=== PATIENT | female | born 1995 | race Hispanic/Latino ===

== ENCOUNTER 2018-10-19 19:47 | Emergency (ER) | payer MEDICARE, OTHER ==
[~2018-10-19] VITALS: Ht 157.5 cm; Wt 95.3 kg
--- OUTSIDE RECORDS SUMMARY | 2018-10-19 19:50 | XMS REPORT ---
Author Author [facility] Address Unknown Phone Unavailable Care Team Providers Care Tree Worker Name Role Phone Unavailable Unavailable Payers Payer Name Policy Type Policy Number Effective Date Expiration Date Problems This patient has no known problems. Allergies, Adverse Reactions, Alerts Allergy Name Allergy Type Status Severity Reaction(s) Onset Date Inactive Date Treating Clinician Comments No Known Allergies DA Active U 2018-07-11 00:00:00 No Known Allergies DA Active U 2017-12-02 00:00:00 Medications This patient has no known medications. Results Test Description Test Time Test Comments Text Results Atomic Results Result Comments URINALYSIS COMPLETE 2018-10-18 21:25:00 UA COLOR (test code=COLU) YELLOW YELLOW UA APPEARANCE (test code=APPU) CLEAR CLEAR UA GLUCOSE DIPSTICK (test code=DGLUU) norm mg/dL NEGATIVE UA BILIRUBIN DIPSTICK (test code=BILU) NEGATIVE mg/dL NEGATIVE UA KETONE DIPSTICK (test code=KETU) neg mg/dL NEGATIVE UA SPECIFIC GRAVITY (test code=SGU) 1.015 1.001-1.035 UA BLOOD DIPSTICK (test code=ISAURO) 25 (1+) Tyler/uL NEGATIVE UA PH DIPSTICK (test code=LISA) 6.5 5.0-8.0 UA PROTEIN DIPSTICK (test code=PROU) neg mg/dL Neg-15 UA UROBILINIOGEN DIPSTICK (test code=URO) 1 mg/dL 0.0-0.2 UA NITRITE DIPSTICK (test code=MANI) NEGATIVE NEGATIVE UA LEUKOCYTE ESTERASE DIPSTICK (test code=LEUU) 25 Gianluca/uL (Trace) uL NEGATIVE UA WBC (test code=WBCU) 0-5 per HPF 0-5 UA RBC (test code=RBCU) 3-5 per HPF 0-5 UA EPITHELIAL CELLS (test code=EPIU) Few (2-5/hpf) per HPF Few UA BACTERIA (test code=BACU) FEW per HPF NONE UR HCG [id number] 21:25:00* Test Item Value Reference Range Comments UR HCG QUAL (test code=HCGQLU) NEGATIVE This HCGQL test is NOT applicable for MALE patients.Check with nurse about probable order error.If Tumor Marker Test needed, nurse should order test "HCGTU"(Test #550.59796) URINALYSIS [id number] 21:21:00* Test Item Value Reference Range Comments UA COLOR (test code=COLU) YELLOW YELLOW UA APPEARANCE (test code=APPU) CLEAR CLEAR UA GLUCOSE DIPSTICK (test code=DGLUU) norm mg/dL NEGATIVE UA BILIRUBIN DIPSTICK (test code=BILU) NEGATIVE mg/dL NEGATIVE UA KETONE DIPSTICK (test code=KETU) neg mg/dL NEGATIVE UA SPECIFIC GRAVITY (test code=SGU) 1.015 1.001-1.035 UA BLOOD DIPSTICK (test code=ISAURO) 25 (1+) Tyler/uL NEGATIVE UA PH DIPSTICK (test code=LISA) 6.5 5.0-8.0 UA PROTEIN DIPSTICK (test code=PROU) neg mg/dL Neg-15 UA UROBILINIOGEN DIPSTICK (test code=URO) 1 mg/dL 0.0-0.2 UA NITRITE DIPSTICK (test code=MANI) NEGATIVE NEGATIVE UA LEUKOCYTE ESTERASE DIPSTICK (test code=LEUU) uL NEGATIVE UA WBC (test code=WBCU) per HPF 0-5 UA RBC (test code=RBCU) per HPF 0-5 UA EPITHELIAL CELLS (test code=EPIU) per HPF Few UA BACTERIA (test code=BACU) per HPF NONE URINALYSIS W/O [id number] 21:21:00* Test Item Value Reference Range Comments UA LEUKOCYTE ESTERASE W REFLEX (test code=LEUUR) NEGATIVE UR HCG [id number] 21:21:00* Test Item Value Reference Range Comments UR HCG QUAL (test code=HCGQLU) URINALYSIS [id number] 21:21:00* Test Item Value Reference Range Comments UA COLOR (test code=COLU) YELLOW YELLOW UA APPEARANCE (test code=APPU) CLEAR CLEAR UA GLUCOSE DIPSTICK (test code=DGLUU) norm mg/dL NEGATIVE UA BILIRUBIN DIPSTICK (test code=BILU) NEGATIVE mg/dL NEGATIVE UA KETONE DIPSTICK (test code=KETU) neg mg/dL NEGATIVE UA SPECIFIC GRAVITY (test code=SGU) 1.015 1.001-1.035 UA BLOOD DIPSTICK (test code=ISAURO) 25 (1+) Tyler/uL NEGATIVE UA PH DIPSTICK (test code=LISA) 6.5 5.0-8.0 UA PROTEIN DIPSTICK (test code=PROU) neg mg/dL Neg-15 UA UROBILINIOGEN DIPSTICK (test code=URO) 1 mg/dL 0.0-0.2 UA NITRITE DIPSTICK (test code=MANI) NEGATIVE NEGATIVE UA LEUKOCYTE ESTERASE DIPSTICK (test code=LEUU) uL NEGATIVE UA WBC (test code=WBCU) per HPF 0-5 UA RBC (test code=RBCU) per HPF 0-5 UA EPITHELIAL CELLS (test code=EPIU) per HPF Few UA BACTERIA (test code=BACU) per HPF NONE URINALYSIS W/O [id number] 21:21:00* Test Item Value Reference Range Comments UA LEUKOCYTE ESTERASE W REFLEX (test code=LEUUR) NEGATIVE UR HCG [id number] 21:21:00* Test Item Value Reference Range Comments UR HCG QUAL (test code=HCGQLU) URINALYSIS [id number] 20:57:00* Test Item Value Reference Range Comments UA COLOR (test code=COLU) YELLOW YELLOW UA APPEARANCE (test code=APPU) HAZY CLEAR UA GLUCOSE DIPSTICK (test code=DGLUU) norm mg/dL NEGATIVE UA BILIRUBIN DIPSTICK (test code=BILU) NEGATIVE mg/dL NEGATIVE UA KETONE DIPSTICK (test code=KETU) neg mg/dL NEGATIVE UA SPECIFIC GRAVITY (test code=SGU) 1.015 1.001-1.035 UA BLOOD DIPSTICK (test code=ISAURO) 10 (Trace) Tyler/uL NEGATIVE UA PH DIPSTICK (test code=LISA) 8.0 5.0-8.0 UA PROTEIN DIPSTICK (test code=PROU) neg mg/dL Neg-15 UA UROBILINIOGEN DIPSTICK (test code=URO) norm mg/dL 0.0-0.2 UA NITRITE DIPSTICK (test code=MANI) NEGATIVE NEGATIVE UA LEUKOCYTE ESTERASE DIPSTICK (test code=LEUU) 25 Gianluca/uL (Trace) uL NEGATIVE UA WBC (test code=WBCU) 0-5 per HPF 0-5 IN SOME URINARY TRACT INFECTIONS THERE MAY NOT BE ENOUGHWBCs IN THE URINE TO TRIGGER AN AUTOMATIC (REFLEX) URINECULTURE. A SEPERATE ORDER FOR URINE CULTURE IS RECOMMENDEDIF THERE IS STRONG SUPPORT FOR A URINARY TRACT INFECTIONCLINICALLY. UA RBC (test code=RBCU) 0-2 per HPF 0-5 UA EPITHELIAL CELLS (test code=EPIU) Few (2-5/hpf) per HPF Few UA BACTERIA (test code=BACU) TRACE per HPF NONE UA MUCUS (test code=MUCU) MODERATE per LPF NONE-FEW UA AMORPHOUS SEDIMENT (test code=AMORU) FEW per LPF NONE Urine Source? Clean CatchUR HCG [id number] 20:57:00* Test Item Value Reference Range Comments UR HCG QUAL (test code=HCGQLU) NEGATIVE This HCGQL test is NOT applicable for MALE patients.Check with nurse about probable order error.If Tumor Marker Test needed, nurse should order test "HCGTU"(Test #550.65926) Urine Source? Clean CatchURINALYSIS [id number] 20:54:00* Test Item Value Reference Range Comments UA COLOR (test code=COLU) YELLOW YELLOW UA APPEARANCE (test code=APPU) HAZY CLEAR UA GLUCOSE DIPSTICK (test code=DGLUU) norm mg/dL NEGATIVE UA BILIRUBIN DIPSTICK (test code=BILU) NEGATIVE mg/dL NEGATIVE UA KETONE DIPSTICK (test code=KETU) neg mg/dL NEGATIVE UA SPECIFIC GRAVITY (test code=SGU) 1.015 1.001-1.035 UA BLOOD DIPSTICK (test code=ISAURO) 10 (Trace) Tyler/uL NEGATIVE UA PH DIPSTICK (test code=LISA) 8.0 5.0-8.0 UA PROTEIN DIPSTICK (test code=PROU) neg mg/dL Neg-15 UA UROBILINIOGEN DIPSTICK (test code=URO) norm mg/dL 0.0-0.2 UA NITRITE DIPSTICK (test code=MANI) NEGATIVE NEGATIVE UA LEUKOCYTE ESTERASE DIPSTICK (test code=LEUU) 25 Gianluca/uL (Trace) uL NEGATIVE UA WBC (test code=WBCU) per HPF 0-5 UA RBC (test code=RBCU) per HPF 0-5 UA EPITHELIAL CELLS (test code=EPIU) per HPF Few UA BACTERIA (test code=BACU) per HPF NONE Urine Source? Clean CatchUR HCG [id number] 20:54:00* Test Item Value Reference Range Comments UR HCG QUAL (test code=HCGQLU) NEGATIVE This HCGQL test is NOT applicable for MALE patients.Check with nurse about probable order error.If Tumor Marker Test needed, nurse should order test "HCGTU"(Test #550.88647) Urine Source? Clean CatchURINALYSIS [id number] 20:53:00* Test Item Value Reference Range Comments UA COLOR (test code=COLU) YELLOW YELLOW UA APPEARANCE (test code=APPU) HAZY CLEAR UA GLUCOSE DIPSTICK (test code=DGLUU) norm mg/dL NEGATIVE UA BILIRUBIN DIPSTICK (test code=BILU) NEGATIVE mg/dL NEGATIVE UA KETONE DIPSTICK (test code=KETU) neg mg/dL NEGATIVE UA SPECIFIC GRAVITY (test code=SGU) 1.015 1.001-1.035 UA BLOOD DIPSTICK (test code=ISAURO) 10 (Trace) Tyler/uL NEGATIVE UA PH DIPSTICK (test code=LISA) 8.0 5.0-8.0 UA PROTEIN DIPSTICK (test code=PROU) neg mg/dL Neg-15 UA UROBILINIOGEN DIPSTICK (test code=URO) norm mg/dL 0.0-0.2 UA NITRITE DIPSTICK (test code=MANI) NEGATIVE NEGATIVE UA LEUKOCYTE ESTERASE DIPSTICK (test code=LEUU) 25 Gianluca/uL (Trace) uL NEGATIVE UA WBC (test code=WBCU) per HPF 0-5 UA RBC (test code=RBCU) per HPF 0-5 UA EPITHELIAL CELLS (test code=EPIU) per HPF Few UA BACTERIA (test code=BACU) per HPF NONE Urine Source? Clean CatchUR HCG [id number] 20:53:00* Test Item Value Reference Range Comments UR HCG QUAL (test code=HCGQLU) Urine Source? Clean Catch- MRI [id number] 08:46:00 FAX: Chino Silva MD [phone] [place]: [address] St: ADM Name: JILLIAN PACE [facility] : [birth year] Age/S: 23/F [address] Unit #: [id number] Loc: [place] [place] [address] Phys: Tai Silva MD Acct: [id number] Dis Date: Status: ADM IN PHONE #: [phone] Exam Date: 07/02/2018 0833 FAX #: [phone] Reason: pancreatitis EXAMS: CPT CODE: [id number] MRI MRCP [id number] HISTORY: Pancreatitis. COMPARISON: Ultrasound and CT scan from previous day. MRCP: 3-D images. CBD is normal at 3.2 mm without filling defects with smoo th taper into the ampulla. No evidence of CBD stones. Common hepatic, ri ght and left hepatic ducts are normal. Pancreatic duct is unremarkable as well. Gallbladder demonstrating gallstones. No ascites. IMPRESSION: Normal CBD at 3.2 mm without filling defects. No CBD stones. Smooth taper into the ampulla. Gallstones. El ectronically Signed by Wnedy Scott on 07/02/2018 at 0846 Reported and signed by: Howard Scott M.D. CC: Chino Streeter MD Technologist: SURESH MalhotraRT - MRI [place] Date/Time/By: 07/02/2018 (084 6) : By: [email or web address] Orig Print D/T: S: 07/02/2018 (0850) PAGE 1 Signed Report BASIC METABOLIC [id number] 05:31:00* Test Item Value Reference Range Comments SODIUM (test code=NA) 139 mmol/L 136-145 POTASSIUM (test code=K) 3.8 mmol/L 3.5-5.1 CHLORIDE (test code=CL) 107.0 mmol/L 98-107 CARBON DIOXIDE (test code=CO2) 26.0 mmol/L 21-32 ANION GAP (test code=GAP) 9.8 10-20 GLUCOSE (test code=GLU) 72 mg/dL 74-106 BLOOD UREA NITROGEN (test code=BUN) 5 mg/dL 7-18 GLOMERULAR FILTRATION RATE (test code=GFR) > 60 mL/min >=60 Estimated GFR by using Modified MDRD formula.Chronic kidney disease is defined as either kidney damageor GFR <60 mL/min/1.73 m2 for >3 months. CREATININE (test code=CREAT) 0.30 mg/dL 0.55-1.02 Note change in reference range due to change in reagent. BUN/CREATININE RATIO (test code=BUN/CREA) 14.9 10-20 CALCIUM (test code=CA) 7.7 mg/dL 8.5-10.1 [id number] 05:31:00* Test Item Value Reference Range Comments LIPASE (test code=LIP) 97 U/L 73.0-393.0 BASIC METABOLIC [id number] 05:27:00* Test Item Value Reference Range Comments SODIUM (test code=NA) 139 mmol/L 136-145 POTASSIUM (test code=K) 3.8 mmol/L 3.5-5.1 CHLORIDE (test code=CL) 107.0 mmol/L 98-107 CARBON DIOXIDE (test code=CO2) mmol/L 21-32 ANION GAP (test code=GAP) 10-20 GLUCOSE (test code=GLU) mg/dL 74-106 BLOOD UREA NITROGEN (test code=BUN) mg/dL 7-18 GLOMERULAR FILTRATION RATE (test code=GFR) mL/min >=60 CREATININE (test code=CREAT) mg/dL 0.55-1.02 BUN/CREATININE RATIO (test code=BUN/CREA) 10-20 CALCIUM (test code=CA) mg/dL 8.5-10.1 [id number] 05:27:00* Test Item Value Reference Range Comments LIPASE (test code=LIP) U/L 73.0-393.0 CBC W/AUTO [id number] 05:16:00* Test Item Value Reference Range Comments WHITE BLOOD CELL (test code=WBC) 5.9 K/mm3 4.5-12.5 RED BLOOD CELL (test code=RBC) 4.14 mill/mm3 3.7-5.2 HEMOGLOBIN (test code=HGB) 12.4 gram/dL 11.5-15.5 HEMATOCRIT (test code=HCT) 39.2 % 36.0-46.0 MEAN CELL VOLUME (test code=MCV) 94.7 fL 80-98 MEAN CELL HGB (test code=MCH) 30.0 picogram 27.0-33.0 MEAN CELL HGB CONCETRATION (test code=MCHC) 31.6 gram/dL 33.0-36.0 RED CELL DISTRIBUTION WIDTH (test code=RDW) 12.4 % 11.6-16.2 RED CELL DISTRIBUTION WIDTH SD (test code=RDW-SD) 43.0 fL 37.0-51.0 PLATELET COUNT (test code=PLT) 242 K/mm3 150-450 MEAN PLATELET VOLUME (test code=MPV) 10.0 fL 6.7-11.0 NEUTROPHIL % (test code=NT%) 59.6 % 39.0-69.0 IMMATURE GRANULOCYTE % (test code=IG%) 0.2 % 0.0-5.0 LYMPHOCYTE % (test code=LY%) 31.7 % 25.0-55.0 MONOCYTE % (test code=MO%) 7.3 % 0.0-10.0 EOSINOPHIL % (test code=EO%) 0.7 % 0.0-5.0 BASOPHIL % (test code=BA%) 0.5 % 0.0-1.0 NUCLEATED RBC % (test code=NRBC%) 0.0 % 0-0 NEUTROPHIL # (test code=NT#) 3.54 K/mm3 1.8-7.7 IMMATURE GRANULOCYTE # (test code=IG#) 0.01 x10 3/uL 0-0.03 LYMPHOCYTE # (test code=LY#) 1.88 K/mm3 1.0-5.0 MONOCYTE # (test code=MO#) 0.43 K/mm3 0-0.8 EOSINOPHIL # (test code=EO#) 0.04 K/mm3 0.0-0.5 BASOPHIL # (test code=BA#) 0.03 K/mm3 0.0-0.2 NUCLEATED RBC # (test code=NRBC#) 0.00 K/mm3 0.0-0.1 - US ABDOMEN [id number] 19:52:00 Name: JILLIAN FINK [facility] : 1995 Age/S: 23 / F [address] [facility] Unit #: [id number] Loc: [place] [address] Phys: Luisa Godfrey NP Acct: [id number] Dis Date: Status: ADM IN PHONE #: [phone] Exam Date: 07/01/2018 193 FAX #: [phone] Reason: cholethaisis EXAMS: CPT CODE: [id number] US ABDOMEN LTD 04175 EXAM: Ultrasound abdomen, limited; INFORMATION: Acute pancreatitis; cholelithiasis; FINDINGS: The liver is of normal size and shape. It shows slightly increased parenchymal echogenicity; no focal lesions. The gallbladder normal diameter and wall thickness; it contains numerous small stones. No dilatation of intra or extrahepatic bile ducts. The pancreas is unremarkable. The right kidney is of normal size and shape. No hydronephrosis, no stones and no parenchymal abnormalities. The right kidney measures 11.6 x 5.9 x 6.4 cm. Imaged portions of the IVC and abdominal aorta are unremarkable. IMPRESSION: 1. Cholecystolithiasis. 2. Fatty liver. 3. No sonographic evidence of acute pancreatitis. at 1951 Reported and signed by: Rich Martell M.D. CC: Kori Gonzales MD; Luisa Godfrey NP Technologist: Kelsey Shipley RDMS [place] Date/Time: 07/01/2018 (1951) t.GRW Orig Print D/T: S: 07/01/2018 (1954) Probe: PAGE 1 Signed Report LIPID PROFILE (CORONARY RISK)2018-07-01 11:32:00* Test Item Value Reference Range Comments TRIGLYCERIDES (test code=TRIG) 173 mg/dL 20-150 CHOLESTEROL (test code=CHOL) 119 mg/dL 0-200 CHOLESTEROL/HDL RATIO (test code=CHOLHDL) 3.0 RATIO 0-4.9 RISK ASSOCIATED WITH CHOL/HDL RATIOS: Risk Male Female1/2 AVERAGE 3.43 3.27AVERAGE 4.97 4.442X AVERAGE 9.55 7.053X AVERAGE 23.39 11.04 REFERENCE VALUE IS RELATED TO RISK LEVELS ASRECOMMENDED BY THE RAMO. HEART, LUNG, AND BLOOD INST. HDL CHOLESTEROL (test code=HDL) 30 mg/dL 40-60 LIPOPROTEIN LDL (test code=LDL) 77 mg/dL 100-129 Reference Interval: mg/dL mmol/L Optimal <100 <2.6Near/above optimal 100-129 2.6- 3.3Borderline High 130-159 3.4-4.1High 160-189 4.1-4.9Very High >=190 >=4.9=========This LDL result is a direct measurement.========= [id number] 11:21:00* Test Item Value Reference Range Comments LIPASE (test code=LIP) 551 U/L 73.0-393.0 - CT ABD PELVIS [id number] 05:04:00 Name: JILLIAN FINK [facility] : 1995 Age/S: 23 / F [address] [facility] Unit #: [id number] Loc: [place] [address] Phys: Radha Denton MD Acct: [id number] Dis Date: Status: REG ER PHONE #: [phone] Exam Date: 07/01/2018 0450 FAX #: [phone] Reason: aBDOMINAL PAIN, ELEVATED LIPASE EXAMS: CPT CODE: [id number] CT ABD PELVIS W/CONT 43536 EXAM: - CT ABD PELVIS W/CONT INDICATION: 23 years -old Female with aBDOMINAL PAIN, ELEVATED LIPASE TECHNIQUE: Contrast - IV contrast was given. No oral contrast was given Portal venous phase - abdomen and pelvis Delayed phase imaging was obtained through the abdomen and pelvis Reconstructions - coronal and sagittal planes Automated exposure reduction (Auto mA/Smart mA) was utilized in compliance with ACR [employer] COMPARISON: 05/17/2018 FINDINGS: Statements: None. Thoracic: Included images of the lower chest demonstrate no abn ormalities. Hepatobiliary: The liver is normal without focal lesio n. The gallbladder is normal. No biliary dilation. Pancreas: Normal. Spleen: Normal. Adrenals: Normal. Genitourinary: The kidneys are normal. No evidence of hydronephrosis. Evaluation of the bladder is limited, but no obvious bladder abnormality is present. Gastrointestinal: No bowel obstruction or perienteric inflammation. The appendix is not visualized Vascular: No evidence of aneurysm or dissection. Lymphatics: No enlarged lymph nodes by CT size criteria. Bones/Soft Tissues: No acute osseous findings. Small fat-containing umbilical hernia is present. Peritoneum/Other: No extraluminal air. No extraluminal fluid. PAGE 1 Signed Report (CONTINUED) Name: JILLIAN FINK [facility] : 1995 Age/S: 23 / F [address] [facility] Unit #: [id number] Loc: [place] [address] Phys: Radha Dneton MD Acct: [id number] Dis Date: Status: REG ER PHONE #: [phone] Exam Date: 07/01/2018 0450 FAX #: [phone] Reason: aB DOMINAL PAIN, ELEVATED LIPASE EXAMS: CPT CODE: [id number] CT ABD PELVIS W/CONT 86176 <Continued> IMPRESSION: 1. No acute inflammatory process. No other acute abnormality identified. No CT evidence of pancreatitis. at 0504 Reported and signed by: Shon Kincaid MD CC: Radha Denton MD Technologist:BASILIO CARRENO RT(R),RDMS,CT CTDI: DLP: Trnscb Date/Time: 07/01/2018 (0504) t.SDR.RXC2 Orig Print D/T: S: 07/01/2018 (0507) CTDI: DLP: PAGE 2 Signed Report [id number] 03:46:00* Test Item Value Reference Range Comments LIPASE (test code=LIP) 2803 U/L 128-270 ADD ONBASIC METABOLIC [id number] 03:27:00* Test Item Value Reference Range Comments SODIUM (test code=NA) 142 mmol/L 135-148 POTASSIUM (test code=K) 3.5 mmol/L 3.5-5.1 CHLORIDE (test code=CL) 105 mmol/L 101-109 CARBON DIOXIDE (test code=CO2) 28.5 mmol/L 21-32 ANION GAP (test code=GAP) 12 mmol/L 10-20 GLUCOSE (test code=GLU) 109 mg/dL 74-106 BLOOD UREA NITROGEN (test code=BUN) 10 mg/dL 3-21 GLOMERULAR FILTRATION RATE (test code=GFR) > 60 mL/min >=60 Estimated GFR by using Modified MDRD formula.Chronic kidney disease is defined as either kidney damageor GFR <60 mL/min/1.73 m2 for >3 months. CREATININE (test code=CREAT) 0.63 mg/dL 0.55-1.3 BUN/CREATININE RATIO (test code=BUN/CREA) 15.9 10-20 CALCIUM (test code=CA) 8.6 mg/dL 8.4-10.2 HEPATIC FUNCTION [id number] 03:27:00* Test Item Value Reference Range Comments TOTAL PROTEIN (test code=PROT) 7.1 g/dL 6.5-8.4 ALBUMIN (test code=ALB) 3.6 g/dL 3.4-4.8 GLOBULIN (test code=GLOB) 3.5 G/DL 1-10 ALBUMIN/GLOBULIN RATIO (test code=A/G) 1.0 RATIO 0.75-1.50 BILIRUBIN TOTAL (test code=BILT) 0.30 mg/dL 0.0-1.0 BILIRUBIN DIRECT (test code=BILD) 0.20 mg/dL 0.0-0.30 SGOT/AST (test code=AST) 70 U/L 6-32 SGPT/ALT (test code=ALT) 53 U/L 12-78 Note: Change in REFERENCE RANGE due to new reagent method. ALKALINE PHOSPHATASE TOTAL (test code=ALKP) 128 U/L 38-126 BASIC METABOLIC [id number] 03:22:00* Test Item Value Reference Range Comments SODIUM (test code=NA) 142 mmol/L 135-148 POTASSIUM (test code=K) 3.5 mmol/L 3.5-5.1 CHLORIDE (test code=CL) 105 mmol/L 101-109 CARBON DIOXIDE (test code=CO2) 28.5 mmol/L 21-32 ANION GAP (test code=GAP) 12 mmol/L 10-20 GLUCOSE (test code=GLU) 109 mg/dL 74-106 BLOOD UREA NITROGEN (test code=BUN) 10 mg/dL 3-21 GLOMERULAR FILTRATION RATE (test code=GFR) > 60 mL/min >=60 Estimated GFR by using Modified MDRD formula.Chronic kidney disease is defined as either kidney damageor GFR <60 mL/min/1.73 m2 for >3 months. CREATININE (test code=CREAT) 0.63 mg/dL 0.55-1.3 BUN/CREATININE RATIO (test code=BUN/CREA) 15.9 10-20 CALCIUM (test code=CA) 8.6 mg/dL 8.4-10.2 HEPATIC FUNCTION [id number] 03:22:00* Test Item Value Reference Range Comments TOTAL PROTEIN (test code=PROT) gram/dL 6.4-8.2 ALBUMIN (test code=ALB) g/dL 3.4-5.0 GLOBULIN (test code=GLOB) g/dL 2.7-4.2 ALBUMIN/GLOBULIN RATIO (test code=A/G) 0.75-1.50 BILIRUBIN TOTAL (test code=BILT) mg/dL 0.2-1.2 BILIRUBIN DIRECT (test code=BILD) mg/dL 0.0-0.20 SGOT/AST (test code=AST) IUnit/L 15-37 SGPT/ALT (test code=ALT) U/L 10-69 ALKALINE PHOSPHATASE TOTAL (test code=ALKP) IUnit/L 45-117 URINALYSIS [id number] 03:18:00* Test Item Value Reference Range Comments UA COLOR (test code=COLU) YELLOW YELLOW UA APPEARANCE (test code=APPU) SLIGHT HAZY CLEAR UA GLUCOSE DIPSTICK (test code=DGLUU) NORMAL mg/dL NEGATIVE UA BILIRUBIN DIPSTICK (test code=BILU) NEGATIVE mg/dL NEGATIVE UA KETONE DIPSTICK (test code=KETU) neg mg/dL NEGATIVE UA SPECIFIC GRAVITY (test code=SGU) 1.010 1.001-1.035 UA BLOOD DIPSTICK (test code=ISAURO) 25 (1+) Tyler/uL NEGATIVE UA PH DIPSTICK (test code=LISA) 7.0 5.0-8.0 UA PROTEIN DIPSTICK (test code=PROU) neg mg/dL Neg-15 UA UROBILINIOGEN DIPSTICK (test code=URO) norm mg/dL 0.0-0.2 UA NITRITE DIPSTICK (test code=MANI) NEGATIVE NEGATIVE UA LEUKOCYTE ESTERASE DIPSTICK (test code=LEUU) 100/uL (2+) uL NEGATIVE UA WBC (test code=WBCU) 6-10 per HPF 0-5 IN SOME URINARY TRACT INFECTIONS THERE MAY NOT BE ENOUGHWBCs IN THE URINE TO TRIGGER AN AUTOMATIC (REFLEX) URINECULTURE. A SEPERATE ORDER FOR URINE CULTURE IS RECOMMENDEDIF THERE IS STRONG SUPPORT FOR A URINARY TRACT INFECTIONCLINICALLY. UA RBC (test code=RBCU) 3-5 per HPF 0-5 UA EPITHELIAL CELLS (test code=EPIU) Many (>10/hpf) per HPF Few UA BACTERIA (test code=BACU) MODERATE per HPF NONE Urine Source? Clean CatchUR HCG [id number] 03:18:00* Test Item Value Reference Range Comments UR HCG QUAL (test code=HCGQLU) NEGATIVE This HCGQL test is NOT applicable for MALE patients.Check with nurse about probable order error.If Tumor Marker Test needed, nurse should order test "HCGTU"(Test #[id number]) Urine Source? Clean CatchCBC W/AUTO [id number] 03:11:00* Test Item Value Reference Range Comments WHITE BLOOD CELL (test code=WBC) 11.6 K/mm3 4.5-12.5 RED BLOOD CELL (test code=RBC) 4.29 mill/mm3 3.7-5.2 HEMOGLOBIN (test code=HGB) 13.4 gram/dL 11.5-15.5 HEMATOCRIT (test code=HCT) 39.0 % 36.0-46.0 MEAN CELL VOLUME (test code=MCV) 90.9 fL 80-98 MEAN CELL HGB (test code=MCH) 31.2 picogram 27.0-33.0 MEAN CELL HGB CONCETRATION (test code=MCHC) 34.4 gram/dL 33.0-36.0 RED CELL DISTRIBUTION WIDTH (test code=RDW) 13.0 % 11.6-16.2 RED CELL DISTRIBUTION WIDTH SD (test code=RDW-SD) 42.2 fL 39.1-52.0 PLATELET COUNT (test code=PLT) 245 K/mm3 150-450 MEAN PLATELET VOLUME (test code=MPV) 9.7 fL 6.7-11.0 NEUTROPHIL % (test code=NT%) 70.1 % 39.0-69.0 LYMPHOCYTE % (test code=LY%) 19.9 % 25.0-55.0 MONOCYTE % (test code=MO%) 9.0 % 0.0-10.0 EOSINOPHIL % (test code=EO%) 0.7 % 0.0-5.0 BASOPHIL % (test code=BA%) 0.3 % 0.0-1.0 NEUTROPHIL # (test code=NT#) 8.09 K/mm3 1.8-7.7 LYMPHOCYTE # (test code=LY#) 2.30 K/mm3 1.0-5.0 MONOCYTE # (test code=MO#) 1.04 K/mm3 0-0.8 EOSINOPHIL # (test code=EO#) 0.08 K/mm3 0.0-0.5 BASOPHIL # (test code=BA#) 0.04 K/mm3 0.0-0.2 MANUAL DIFF REQUIRED (test code=MDIFF) NO
[2018-10-19] MEDS ORDERED: ONDANSETRON HCL INJ 2MG/ML 2ML 2 MG/ML VIAL IV STA (19:59)
[2018-10-19] MEDS ORDERED: SODIUM CHLORIDE 0.9% 1000ML 1,000 ML IV SCH (20:00)
[2018-10-19] MEDS ORDERED: ONDANSETRON HCL INJ 2MG/ML 2ML 2 MG/ML VIAL ONE (20:05)
[2018-10-19] MEDS ORDERED: SODIUM CHLORIDE 0.9% 1000ML 1,000 ML ONE (20:05)
[2018-10-19] MEDS ORDERED: PHENERGAN SUPP25 MG RC (20:29)
[2018-10-19] MEDS ORDERED: NAPROSYN500 MG PO (20:29)
== END 2018-10-19 20:57 | disposition home or self-care (01) ==
LOC: FSED 19:47
DX: R11.2 Nausea with vomiting, unspecified (principal); J11.1 Influenza due to unidentified influenza virus with other respiratory manifestations
CPT/HCPCS: 80053; 81003; 81025; 85025; 99283; J2405; J7030

== ENCOUNTER 2022-10-12 21:15 | Emergency (ER) | payer OTHER ==
[~2022-10-12] VITALS: Ht 157.5 cm; Wt 95.3 kg
[~2022-10-12 21:15] MED LIST: NAPROSYN500 MG PO; PHENERGAN SUPP25 MG RC
[2022-10-12] MEDS ORDERED: VENTOLIN HFA18 GM INH (22:35)
[2022-10-12] MEDS ORDERED: AZITHROMYCIN250 MG PO (22:35)
[2022-10-12] MEDS ORDERED: PREDNISONE20 MG PO (22:35)
[2022-10-12 22:57] VITALS: O2SAT 99
[2022-10-13] MEDS ORDERED: PREDNISONE20 MG PO (00:39)
[2022-10-13] MEDS ORDERED: VENTOLIN HFA18 GM INH (00:39)
[2022-10-13] MEDS ORDERED: ONDANSETRON ODT4 MG PO (00:39)
== END 2022-10-12 23:05 | disposition home or self-care (01) ==
LOC: ER 21:27
DX: R05.9 Cough, unspecified (principal); R07.89 Other chest pain; J06.9 Acute upper respiratory infection, unspecified; Z20.822 Contact with and (suspected) exposure to COVID-19
CPT/HCPCS: 83518; 87070; 93005; 99283; U0002

== ENCOUNTER 2023-03-27 14:32 | Emergency (ER) | payer OTHER ==
[~2023-03-27] VITALS: Ht 157.5 cm; Wt 95.3 kg
[~2023-03-27 14:32] MED LIST changes: +AZITHROMYCIN250 MG PO; +ONDANSETRON ODT4 MG PO; +PREDNISONE20 MG PO; +VENTOLIN HFA18 GM INH
[2023-03-27] MEDS ORDERED: ONDANSETRON HCL INJ 2MG/ML 2ML 2 MG/ML VIAL IV STA (14:43)
[2023-03-27] MEDS ORDERED: KETOROLAC TROMETHAMINE 30 MG/ML VIAL IV STA (14:43)
[2023-03-27] MEDS ORDERED: LACTATED RINGER'S 1,000 ML IV ONE (14:45)
[2023-03-27 15:00] LABS: BASOPHILS # (AUTO) 0.1 (0.0-0.1); BASOPHILS % 0.7 % (0.0-1.0); EOSINOPHILS # (AUTO) 0.4 (0.0-0.4); EOSINOPHILS % 4.3 % (0.0-6.0); HEMATOCRIT 28.9 % (34.2-44.1); HEMOGLOBIN 8.8 g/dL (12.0-16.0); LYMPHOCYTES # (AUTO) 1.6 (1.0-3.2); LYMPHOCYTES % 18.8 % (18.0-39.1); MEAN CORPUSCULAR HEMOGLOBIN 21.7 pg (28-32); MEAN CORPUSCULAR HGB CONC 30.4 g/dL (31-35); MEAN CORPUSCULAR VOLUME 71.2 fL (81-99); MONOCYTES # (AUTO) 0.8 (0.2-0.8); MONOCYTES % 8.8 % (4.4-11.3); NEUTROPHILS # (AUTO) 5.8 (2.1-6.9); NEUTROPHILS % 67.1 % (38.7-80.0); PLATELET COUNT 377 x10e3/uL (140-360); RED BLOOD COUNT 4.06 x10e6/uL (3.6-5.1); RED CELL DISTRIBUTION WIDTH 16.1 % (11.7-14.4); WHITE BLOOD COUNT 8.61 x10e3/uL (4.8-10.8)
[2023-03-27 15:20] LABS: ANION GAP 9.8 mmol/L (8-16); CALCIUM 8.5 mg/dL (8.4-10.2); CREATININE, SERUM 0.57 mg/dL (0.57-1.11); POTASSIUM 3.8 mmol/L (3.5-5.1)
[2023-03-27 15:28] LABS: CLARITY,URINE SL CLOUDY (CLEAR); COLOR,URINE YELLOW (YELLOW); KETONES,URINE NEGATIVE (NEGATIVE); LEUKOCYTE ESTERASE ,URINE NEGATIVE (NEGATIVE); NITRITE,URINE NEGATIVE (NEGATIVE); PROTEIN,URINE DIPSTICK NEGATIVE (NEGATIVE); URINE UROBILINOGEN 1 mg/dL (0.2 - 1)
[2023-03-27 15:39] LABS: BACTERIA,URINE MODERATE /HPF; EPITHELIAL CELLS,URINE MANY /LPF; RBC,URINE 0-5 /HPF (0-5); WBC,URINE (MAN) 0-5 /HPF (0-5)
[2023-03-27] MEDS ORDERED: LEVSIN-SL0.125 MG SL (16:48)
[2023-03-27] MEDS ORDERED: ONDANSETRON ODT4 MG PO (16:48)
[2023-03-27] MEDS ORDERED: METRONIDAZOLE500 MG PO (17:22)
[2023-03-27] MEDS ORDERED: CIPRO500 MG PO (17:22)
[2023-03-27 17:55] VITALS: BP 124/85; PULSE 78; RESP 18; TEMP 98.5; O2SAT 100
== END 2023-03-27 17:59 | disposition home or self-care (01) ==
LOC: ER 14:44
DX: R10.32 Left lower quadrant pain (principal); K57.32 Diverticulitis of large intestine without perforation or abscess without bleeding
CPT/HCPCS: 36415; 74176; 80048; 81001; 81025; 85025; 99284; J1885; J2405; J7121